=== PATIENT | male | born 1980 | race Caucasian/White ===

== ENCOUNTER 2022-06-22 17:10 | Emergency (ER) | payer MEDICAID, SELFPAY ==
[2022-06-22 18:05] VITALS: BP 175/117; PULSE 103; RESP 20; TEMP 36.7; O2SAT 100; BMI 32.1
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
--- NOTE | 2022-06-22 18:32 | XR_ITS ---
PROCEDURE INFORMATION: Exam: XR Left Knee Exam date and time: 06/22/2022 6:31 PM Age: 42 years old Clinical indication: Pain; Knee; Left TECHNIQUE: Imaging protocol: Radiologic exam of the Left knee. Views: 3 views. COMPARISON: No relevant prior studies available. FINDINGS: Bones/joints: Suspected small joint effusion. No fractures, dislocations, or focal bone lesions. Degenerative joint space narrowing affects the medial compartment more than lateral. Mild bone hypertrophy affects the medial compartment and posterior patella. Soft tissues: No soft tissue gas, radiopaque foreign bodies, or masses. IMPRESSION: 1. No fractures or dislocations in the left knee. 2. Mild to moderately severe osteoarthritis in the left knee.
[2022-06-22 19:01] VITALS: BP 175/117; PULSE 103; RESP 20; TEMP 36.7; O2SAT 100
== END 2022-06-22 19:17 | disposition home or self-care (01) ==
PROVIDERS: Emergency Provider Nurse Practitioner Family; PCP Emergency Medicine
DX: M17.12 Unilateral primary osteoarthritis, left knee
CPT/HCPCS: 73562; 96372; 99212; 99213; G0463

== ENCOUNTER 2023-12-03 11:23 | Observation (INO) | payer MEDICAID, SELFPAY ==
[2023-12-03 11:39] VITALS: BP 157/91; PULSE 94; RESP 18; TEMP 36.7; O2SAT 97; BMI 27.4
--- NOTE | 2023-12-03 11:40 | HMH.PHAINT1 ---
Pharmacy Intervention Comments: MEDICATION RECONCILIATION COMPLETED ON PATIENT USING EXTERNAL FILL HISTORY FROM PHARMACY. -ALLIE HARGROVE, VICKID
--- NOTE | 2023-12-03 12:11 | XR_ITS ---
FINAL REPORT CLINICAL HISTORY: SOB COMPARISON: 11/24/2023 FINDINGS: SINGLE-VIEW CHEST There is cardiomegaly with pulmonary vascular congestion. There are partially improved pulmonary opacities consistent with partially improved edema or pneumonia. There is no pneumothorax. IMPRESSION: Partially improved edema or pneumonia. Reviewed, Interpreted and Dictated by Jorge Stacy III, MD Transcribed by Lynne Justin Authenticated and [facility]
[2023-12-03 12:40] LABS: Basophils # 0.1 K/mm3 (0-0.2); Eosinophils # 0.3 K/mm3 (0.0-0.4); Eosinophils % 3.2 % (0.1-12.0); Hematocrit 39.7 % (42.0-52.0); Hemoglobin 13.7 g/dL (14.1-18.0); Lymphocytes % 36.3 % (10-50); Mean Corpuscular HGB Conc 34.5 g/dL (31.8-35.4); Mean Corpuscular Hemoglobin 30.8 pg (27.0-31.2); Mean Corpuscular Volume 89.3 fl (80-94); Mean Platelet Volume 7.8 fl (7.4-10.4); Monocytes # 0.6 K/mm3 (0.1-1.0); Monocytes % 6.8 % (1.7-9.3); Neutrophils # 4.3 K/mm3 (1.8-7.8); Neutrophils % 52.8 % (37.0-80.0); Platelet Count 317 K/mm3 (142-424); Red Blood Count 4.45 M/mm3 (4.60-6.20); Red Cell Distribution Width 13.4 % (11.5-17.5); White Blood Count 8.1 K/mm3 (4.8-10.8)
[2023-12-03 12:45] LABS: Chloride 101 mmol/L (98-107); Potassium 3.9 mmoL/L (3.5-5.1); Sodium 136 mmol/L (136-145)
[2023-12-03 12:47] LABS: Blood Urea Nitrogen 9 mg/dl (9-20); Creatinine Clearance Estimated 189 mL/min (50-200); Estimated Glomerular Filt Rate 124 ml/min (>60); GFR (African American) 150 ML/MIN (>60)
[2023-12-03 12:48] LABS: Alanine Aminotransferase 23 U/L (12-78); Albumin Level 3.8 g/dl (3.5-5.0); Albumin/Globulin Ratio 1.2 (1.1-1.8); Alkaline Phosphatase 102 U/L (38-126); Anion Gap 9.9 mEq/L (5-15); Aspartate Amino Transferase 35 U/L (17-59); Bilirubin,Total 0.9 mg/dl (0.2-1.3); Calcium 9.1 mg/dl (8.4-10.2); Carbon Dioxide 29 mmol/L (22.0-30.0); Globulin 3.2 g/dL (1.3-3.2); Glucose 234 mg/dl (74-100)
[2023-12-03 12:49] LABS: Lactic Acid 1.3 mmol/L (0.7-2.1)
[2023-12-03 12:58] LABS: NT Pro Brain Natriuretic Pep. 782 pg/mL (0-125)
[2023-12-03 13:09] LABS: Troponin I < 0.01 ng/ml (0.00-0.034)
[2023-12-03] MEDS: HEPARIN SODIUM 5,000 UNIT/ML VIAL 5000 UNIT SQ ×2 (13:47→21:02)
[2023-12-03 15:58] VITALS: BP 140/83; PULSE 82; RESP 16; TEMP 36.7; O2SAT 99
[2023-12-03 16:00] VITALS: PULSE 80
--- NOTE | 2023-12-03 17:26 | P.HP_ITS ---
History of Present Illness *Admission Date: 12/03/23 *Reason for visit:: SOB *History of present illness: Patient is a 43-year-old male who presents to the hospital from cardiology clinic who presents to the hospital due to complaints of intermittent shortness of breath, weight gain and generalized fatigue. Patient has past medical history of diabetes mellitus hypertension, hyperlipidemia, tobacco use, meth use, cocaine use. Patient mentions he has been having intermittent chest pains on the left side of his chest 7/10 intensity, nonradiating. Patient otherwise denied nausea vomiting diarrhea constipation dysuria fevers chills abdominal pain. [facility] Disclaimer: The information contained in this section may have been updated after the patient was seen, as this information can be updated by other users. Medical History (Updated 12/03/23 @ 11:06 by Mary Carmen Brewer RN) Unstable angina Abnormal electrocardiogram [ECG] [EKG] HFrEF (heart failure with reduced ejection fraction) History of stroke Diabetes mellitus, type 2 Hypertension Family History (Updated 12/03/23 @ 11:56 by Funmi Hernandez) Other Family history of cancer Family history of myocardial infarction Social History (Updated 12/03/23 @ 11:56 by Funmi Hernandez) Smoking Status: Former smoker alcohol intake: never current occupational status: unemployed and other Travel in the last 8 weeks: None Review of Systems Review of Systems Review of systems:: pertinent systems reviewed and negative unless documented below Meds Home Medications and Allergies Home Medications Medication Instructions Recorded Confirmed Type aspirin 81 mg tablet,delayed 81 mg PO DAILY 12/03/23 12/03/23 History release (Adult Aspirin Regimen) lisinopril 40 mg tablet 40 mg PO DAILY 12/03/23 12/03/23 History metformin 1,000 mg tablet 1,000 mg PO BID 12/03/23 12/03/23 History New Prescriptions to Start Prescriptions: Allergies Allergy/AdvReac Type Severity Reaction Status Date / Time NO KNOWN ALLERGIES - NKA Allergy Mild Uncoded 12/03/23 10:48 Exam Data for Last 24 hours Vital signs and Labs for Last 24 Hours: Temp Pulse Resp BP Pulse Ox O2 Del Method 98.0 F 80 16 140/83 99 Room Air 12/03/23 15:58 12/03/23 16:00 12/03/23 15:58 12/03/23 15:58 12/03/23 15:58 12/03/23 15:00 Laboratory Results - last 24 hr 12/03/23 12:30: WBC 8.1, RBC 4.45 L, Hgb 13.7 L, Hct 39.7 L, MCV 89.3, MCH 30.8, MCHC 34.5, RDW 13.4, Plt Count 317, MPV 7.8, Neut % (Auto) 52.8, Lymph % (Auto) 36.3, [place] % (Auto) 6.8, Eos % (Auto) 3.2, Baso % (Auto) 1.0, Neut # (Auto) 4.3, Lymph # (Auto) 3.0, [place] # (Auto) 0.6, Eos # (Auto) 0.3, Baso # (Auto) 0.1, Sodium 136, Potassium 3.9, Chloride 101, Carbon Dioxide 29, Anion Gap 9.9, BUN 9, Creatinine 0.70, Estimated Creat Clear 189, Estimated GFR 124, Est GFR ( Amer) 150, Glucose 234 H, Lactate 1.3, Calcium 9.1, Total Bilirubin 0.9, AST 35, ALT 23, Alkaline Phosphatase 102, Troponin I < 0.01, NT-Pro-B Natriuret Pep 782 H, Total Protein 7.0, Albumin 3.8, Globulin 3.2, Albumin/Globulin Ratio 1.2 I & O for Last 24 hours: Intake & Output 11/30/23 12/01/23 12/02/23 12/03/23 23:59 23:59 23:59 23:59 Intake Total 480 / 480 Balance 480 / 480 Weight 97.069 kg Constitutional Constitutional: no acute distress *Routine HEENT Exam Head: Present normocephalic Eye: Present EOMI and PERRL ENT: Present mucous membranes moist *Routine Neck Exam Neck: Present supple; Absent lymphadenopathy *Routine Respiratory Exam Respiratory: Present CTA bilaterally *Routine Cardiovascular Exam Cardiovascular: Present RRR *Routine Abdominal Exam Abdominal: Present soft and normoactive bowel sounds; Absent tenderness *Routine Rectal Exam Rectal:: deferred *Routine Genitalia Exam Genitalia:: deferred *Routine Extremities Exam Extremities: Absent cyanosis, clubbing or edema *Routine Skin Exam Skin: Present warm; Absent rash *Routine Neurological Exam Neurological: Present alert and oriented X3 Assessment and Plan *Assessment and plan (1) Unstable angina: Status: Acute Category: Medical Code(s): I20.0 - Unstable angina (2) Chest pain: Status: Acute Category: Medical Code(s): R07.9 - Chest pain, unspecified (3) HFrEF (heart failure with reduced ejection fraction): Status: Acute Category: Medical Code(s): I50.20 - Unspecified systolic (congestive) heart failure (4) Hypertension: Status: Acute Category: Medical Code(s): I10 - Essential (primary) hypertension (5) Diabetes mellitus, type 2: Status: Acute Category: Medical Code(s): E11.9 - Type 2 diabetes mellitus without complications Plan Patient is a 43-year-old male who presents to the hospital from cardiology clinic who presents to the hospital due to complaints of intermittent shortness of breath, weight gain and generalized fatigue. Patient has past medical history of diabetes mellitus hypertension, hyperlipidemia, tobacco use, meth use, cocaine use. Patient mentions he has been having intermittent chest pains on the left side of his chest 7/10 intensity, nonradiating. Patient otherwise denied nausea vomiting diarrhea constipation dysuria fevers chills abdominal pain. Assessment and plan Acute onset CHF Unstable angina Start continue IV twice daily Lasix Consult cardiology Monitor on cardiac national facilities manager troponin Check echocardiogram Substance abuse Monitor for withdrawal symptoms Hypertension Hyperlipidemia Resume home meds Diabetes mellitus Insulin sliding scale DVT prophylaxis- Heparin
[2023-12-03 17:35] LABS: POC Glucose,Bedside 202 (70-110)
[2023-12-03] MEDS: FUROSEMIDE 20 MG/2 ML VIAL IV (17:56)
[2023-12-03 19:07] LABS: Troponin I < 0.01 ng/ml (0.00-0.034)
[2023-12-03 20:00] VITALS: BP 152/89; PULSE 87; PULSE 90; RESP 16; TEMP 36.9; O2SAT 93
[2023-12-03] MEDS: humaLOG 100 UNITS/ML 10ML VIAL (SSI) SQ (21:01)
[2023-12-03] MEDS: ONDANSETRON 4MG/2ML VIAL 4 MG IV (21:02)
[2023-12-03 21:07] LABS: POC Glucose,Bedside 271 (70-110)
[2023-12-03] MEDS: PATIENT'S OWN HOME MEDICATION (Metformin 1,000 mg tablet) 1000 EACH PO (21:13)
[2023-12-04] VITALS: BP 143/85; PULSE 80; PULSE 82; RESP 16; TEMP 36.7; O2SAT 97
[2023-12-04 04:00] VITALS: BP 136/84; PULSE 81; PULSE 90; RESP 16; TEMP 36.8; O2SAT 98; BMI 27.2
[2023-12-04] MEDS: HEPARIN SODIUM 5,000 UNIT/ML VIAL 5000 UNIT SQ (05:50)
[2023-12-04] MEDS: FUROSEMIDE 20 MG/2 ML VIAL IV (05:50)
[2023-12-04 06:04] LABS: POC Glucose,Bedside 144 (70-110)
--- NOTE | 2023-12-04 06:45 | PC.NURSE ---
TRN was called into patient room due to agitation and patient stating to techs that he wanted to leave AMA. Patient kept repeating that he does not know the plan for the day and a physician had not been in the room since he was admitted on 12/03 and informed why he was staying overnight at the hospital not what his plan of care entailed. TRN explained that patient had to remain NPO after midnight for potential procedure today, and that physicians usually round before noon with updates on plan of care. Patient refused to stay even after nurse explanation. Dr. Morales informed of patient wanting to leave AMA. Dr. Morales said to provide patient with AMA paperwork, and did not come to bedside to speak with patient. Patient IV removed and AMA paperwork signed.
[2023-12-04 07:01] LABS: Chloride 100 mmol/L (98-107)
[2023-12-04 07:02] LABS: Potassium 3.9 mmoL/L (3.5-5.1); Sodium 138 mmol/L (136-145)
[2023-12-04 07:05] LABS: Anion Gap 7.9 mEq/L (5-15); Blood Urea Nitrogen 10 mg/dl (9-20); Calcium 9.2 mg/dl (8.4-10.2); Carbon Dioxide 34 mmol/L (22.0-30.0); Creatinine Clearance Estimated 187 mL/min (50-200); Estimated Glomerular Filt Rate 124 ml/min (>60); GFR (African American) 150 ML/MIN (>60); Glucose 127 mg/dl (74-100)
[2023-12-04 07:25] LABS: Basophils % 0.7 % (0.1-2.0); Eosinophils # 0.3 K/mm3 (0.0-0.4); Eosinophils % 4.1 % (0.1-12.0); Hematocrit 40.4 % (42.0-52.0); Hemoglobin 13.8 g/dL (14.1-18.0); Lymphocytes # 2.4 K/mm3 (0.7-4.5); Lymphocytes % 35.8 % (10-50); Mean Corpuscular HGB Conc 34.2 g/dL (31.8-35.4); Mean Corpuscular Volume 90.7 fl (80-94); Mean Platelet Volume 7.5 fl (7.4-10.4); Monocytes # 0.4 K/mm3 (0.1-1.0); Monocytes % 5.2 % (1.7-9.3); Neutrophils # 3.6 K/mm3 (1.8-7.8); Neutrophils % 54.2 % (37.0-80.0); Platelet Count 291 K/mm3 (142-424); Red Blood Count 4.45 M/mm3 (4.60-6.20); Red Cell Distribution Width 13.4 % (11.5-17.5); White Blood Count 6.7 K/mm3 (4.8-10.8)
--- NOTE | 2023-12-04 16:48 | EXP.DC.SUM ---
General Admission date:: 12/03/23 Discharge date: 12/04/23 HPI HPI HPI: Patient is a 43-year-old male who presents to the hospital from cardiology clinic who presents to the hospital due to complaints of intermittent shortness of breath, weight gain and generalized fatigue. Patient has past medical history of diabetes mellitus hypertension, hyperlipidemia, tobacco use, meth use, cocaine use. Patient mentions he has been having intermittent chest pains on the left side of his chest 7/10 intensity, nonradiating. Patient otherwise denied nausea vomiting diarrhea constipation dysuria fevers chills abdominal pain. Hospital Course Hospital Course Hospital Course: patient left AMA Exam Data for Last 24 hours Vital signs and Labs for Last 24 Hours: Temp Pulse Resp BP Pulse Ox O2 Del Method 98.2 F 81 16 136/84 98 Room Air 12/04/23 04:00 12/04/23 04:00 12/04/23 04:00 12/04/23 04:00 12/04/23 04:00 12/04/23 05:00 Laboratory Results - last 24 hr 12/03/23 17:26: POC Glucose 202 H 12/03/23 18:15: Troponin I < 0.01 12/03/23 20:55: POC Glucose 271 H 12/04/23 05:43: WBC 6.7, RBC 4.45 L, Hgb 13.8 L, Hct 40.4 L, MCV 90.7, MCH 31.0, MCHC 34.2, RDW 13.4, Plt Count 291, MPV 7.5, Neut % (Auto) 54.2, Lymph % (Auto) 35.8, [place] % (Auto) 5.2, Eos % (Auto) 4.1, Baso % (Auto) 0.7, Neut # (Auto) 3.6, Lymph # (Auto) 2.4, [place] # (Auto) 0.4, Eos # (Auto) 0.3, Baso # (Auto) 0.0, Sodium 138, Potassium 3.9, Chloride 100, Carbon Dioxide 34 H, Anion Gap 7.9, BUN 10, Creatinine 0.70, Estimated Creat Clear 187, Estimated GFR 124, Est GFR ( Amer) 150, Glucose 127 H D, Calcium 9.2 12/04/23 05:52: POC Glucose 144 H I & O for Last 24 hours: Intake & Output 12/01/23 12/02/23 12/03/23 12/04/23 23:59 23:59 23:59 23:59 Intake Total 750 / 990 240 / 240 Output Total 1675 / 1675 2150 / 2150 Balance -925 / -685 -1910 / -1910 Weight 97.069 kg 96.207 kg Results Data Completed and Pending Labs on day of discharge: Labs from last 24 hours 12/04/23 12/04/23 12/03/23 05:52 05:43 20:55 WBC 6.7 RBC 4.45 L Hgb 13.8 L Hct 40.4 L MCV 90.7 MCH 31.0 MCHC 34.2 RDW 13.4 Plt Count 291 MPV 7.5 Neut % (Auto) 54.2 Lymph % (Auto) 35.8 [place] % (Auto) 5.2 Eos % (Auto) 4.1 Baso % (Auto) 0.7 Neut # (Auto) 3.6 Lymph # (Auto) 2.4 [place] # (Auto) 0.4 Eos # (Auto) 0.3 Baso # (Auto) 0.0 Sodium 138 Potassium 3.9 Chloride 100 Carbon Dioxide 34 H Anion Gap 7.9 BUN 10 Creatinine 0.70 Estimated Creat Clear 187 Estimated GFR 124 Est GFR ( Amer) 150 Glucose 127 H D POC Glucose 144 H 271 H Calcium 9.2 Troponin I 12/03/23 12/03/23 18:15 17:26 WBC RBC Hgb Hct MCV MCH MCHC RDW Plt Count MPV Neut % (Auto) Lymph % (Auto) [place] % (Auto) Eos % (Auto) Baso % (Auto) Neut # (Auto) Lymph # (Auto) [place] # (Auto) Eos # (Auto) Baso # (Auto) Sodium Potassium Chloride Carbon Dioxide Anion Gap BUN Creatinine Estimated Creat Clear Estimated GFR Est GFR ( Amer) Glucose POC Glucose 202 H Calcium Troponin I < 0.01 DS: Diagnosis Discharge Diagnosis (1) Unstable angina: Status: Acute Code(s): I20.0 - Unstable angina (2) Chest pain: Status: Acute Code(s): R07.9 - Chest pain, unspecified (3) HFrEF (heart failure with reduced ejection fraction): Status: Acute Code(s): I50.20 - Unspecified systolic (congestive) heart failure (4) Hypertension: Status: Acute Code(s): I10 - Essential (primary) hypertension (5) Diabetes mellitus, type 2: Status: Acute Code(s): E11.9 - Type 2 diabetes mellitus without complications Meds Home Medications and Allergies Home Medications Medication Instructions Recorded Confirmed Type aspirin 81 mg tablet,delayed 81 mg PO DAILY 12/03/23 12/03/23 History release (Adult Aspirin Regimen) lisinopril 40 mg tablet 40 mg PO DAILY 12/03/23 12/03/23 History metformin 1,000 mg tablet 1,000 mg PO BID 12/03/23 12/03/23 History New Prescriptions to Start Prescriptions: Allergies Allergy/AdvReac Type Severity Reaction Status Date / Time No Known Allergies Allergy Unverified 12/04/23 07:28 Discharge Plan Disposition Patient Disposition: Left Against Medical Advice Providers Admit Provider: Donny Morales Attending Provider: Donny Morales
== END 2023-12-04 07:00 | disposition left against medical advice (07) ==
PROVIDERS: Admitting Provider Internal Medicine; PCP Emergency Medicine; Visit Provider Internal Medicine
DX: I20.0 Unstable angina (principal); I11.0 Hypertensive heart disease with heart failure; I50.20 Unspecified systolic (congestive) heart failure; E11.9 Type 2 diabetes mellitus without complications; Z79.84 Long term (current) use of oral hypoglycemic drugs; Z79.899 Other long term (current) drug therapy; F17.210 Nicotine dependence, cigarettes, uncomplicated; F14.90 Cocaine use, unspecified, uncomplicated; F15.90 Other stimulant use, unspecified, uncomplicated
CPT/HCPCS: 36415; 71045; 80048; 80053; 82962; 83605; 83880; 84484; 85025; 93306; G0378; J1644; J2405